=== PATIENT | female | born 1955 | race Caucasian/White ===

== ENCOUNTER 2022-03-25 09:45 | Outpatient (RCR) | payer MEDICARE, BC, SELFPAY | END 2022-03-29 23:59 | LOC: DC 09:45 | PROVIDERS: PCP Internal Medicine; Referring Provider Internal Medicine; Visit Provider Internal Medicine | DX: E11.21 Type 2 diabetes mellitus with diabetic nephropathy (principal) | CPT/HCPCS: 97802; G0108 ==